=== PATIENT | female | born 1970 | race Caucasian/White ===

== ENCOUNTER 2017-02-15 19:43 | Emergency (ER) | payer MEDICAID ==
[2017-02-15 19:51] VITALS: O2SAT 100
[2017-02-15] MEDS ORDERED: Albuterol-Ipratrop 3 mg / 0.5 (3 ml) UD INH STA ×4 (20:10→21:20)
[2017-02-15] MEDS ORDERED: Albuterol-Ipratrop 3 mg / 0.5 (3 ml) UD ONE ×4 (20:20→21:53)
[2017-02-15] MEDS ORDERED: Albuterol 0.083% Inhal Sol (2.5 mg/3 mL) UD IH STA (21:40)
--- NOTE | 2017-02-15 21:45 | C.PDOC ---
History Of Present Illness 46 year old female presents to the ED with complaints of productive cough with green sputum, wheezing x approx 1 week - sent to ED by Dr. Covarrubias for evaluation. Patient states she was given antibiotics (Augmentin) by her PMD and completed the treatment, but has not had significant improvement. She also states she typically takes 5 mg daily (for RA) but has not had a steroid increase during these symptoms. She admits to history of asthma, denies intubation history but has had multiple admissions in the past. Patient also c/ o pleuritic back/chest pain. She denies fever, palpitations, abdominal pain. Time Seen by Provider: 02/15/17 20:05 Chief Complaint (Nursing): Shortness Of Breath History Per: Patient History/Exam Limitations: no limitations Onset/Duration Of Symptoms: Days (one week) Current Symptoms Are (Timing): Still Present Current Respiratory Medications: See Home Med List Severity: Moderate Past Medical History Reviewed: Historical Data, Nursing Documentation, Vital Signs Vital Signs: Last Vital Signs Temp 98.6 F 02/15/17 22:47 Pulse 120 H 02/15/17 22:47 Resp 20 02/15/17 22:47 BP 130/65 02/15/17 22:47 Pulse Ox 100 02/15/17 22:39 - Medical History PMH: Arthritis, Asthma, Rheumatoid Arthritis Surgical History: Cholecystectomy (15+ years ago) - [facility] Procedures DRAINAGE OF BLADDER WITH DRAINAGE DEVICE, VIA OPENING (11/09/16) Family History: States: No Known Family Hx - Social History Hx Tobacco Use: No Hx Alcohol Use: No Hx Substance Use: No - Immunization History Hx Tetanus Toxoid Vaccination: No Hx Influenza Vaccination: No Hx Pneumococcal Vaccination: No Review Of Systems Except As Marked, All Systems Reviewed And Found Negative. Constitutional: Negative for: Fever, Chills Cardiovascular: Negative for: Chest Pain, Palpitations Respiratory: Positive for: Cough (productive with green sputum ). Negative for : Shortness of Breath Gastrointestinal: Negative for: Nausea, Vomiting, Abdominal Pain, Diarrhea Genitourinary: Negative for: Dysuria, Hematuria, Vaginal Discharge, Vaginal Bleeding Skin: Negative for: Rash Physical Exam - Physical Exam Appears: Well, Non-toxic, No Acute Distress, Other (coughing occasionally, speaking in full sentences) Skin: Warm, Dry Head: Normacephalic Eye(s): bilateral: Normal Inspection Oral Mucosa: Moist Throat: Normal, No Erythema, No Exudate, No Drooling Neck: Normal, Normal ROM, Supple Cardiovascular: Rhythm Regular, Other (tachycardic) Respiratory: No Accessory Muscle Use, No Rales, No Rhonchi, No Stridor, Wheezing (bilateral expiratory wheezing ) Gastrointestinal/Abdominal: Normal Exam, Bowel Sounds, Soft, No Tenderness Extremity: Normal ROM, No Tenderness, No Pedal Edema, No Calf Tenderness Pulses: Left Dorsalis Pedis: Normal, Right Dorsalis Pedis: Normal Neurological/Psych: Oriented x3 ED Course And Treatment O2 Sat by Pulse Oximetry: 100 (room air ) Pulse Ox Interpretation: Normal - Radiology CXR: Interpreted by Me, Viewed By Me (questionable right sided infiltrate, no effusions) Progress Note: Patient given PO Prednisone, multiple duoneb/albuterol neb treatments. CXR ordered and reviewed. Reevaluation Time: 22:45 Reassessment Condition: Improved (Patient reassessed, is resting comfortably and states she is feeling much better. On exam, she has good air entry without wheezing or accessory muscle use. Pox is 100% on RA, and peak flow has improved to300 (done by me). Patient oprefers to be discharged home at this time with PO meds. She was given Rxs for prednisone, albuterol inhaler, tessalon and avelox. Patient instructed to follow up with PMD in 1-2 days, and she understands she should return to ED immeidately if symptoms worsen.) Critical Care Time - Critical Care Note Total Time (in mins): 35 Documented critical care: time excludes all time spent performing seperately billable procedures. Disposition Counseled Patient/Family Regarding: Studies Performed, Diagnosis, Need For Followup, Rx Given - Disposition Referrals: Shaik Covarrubias MD [Staff Provider] - Disposition: HOME/ ROUTINE Disposition Time: 22:45 Condition: STABLE Additional Instructions: FOLLOW UP WITH YOUR DOCTOR IN 1-2 DAYS USE MEDICATIONS DIRECTED RETURN TO ER IF SYMPTOMS WORSEN Prescriptions: Albuterol 0.5% [Albuterol 0.5% Inhal Viviana (2.5 mg/0.5 ml) UD] 2.5 mg IH Q6 PRN # 1 bottle PRN Reason: Wheezing Benzonatate [Tessalon Perles] 100 mg PO BID PRN #20 sgl PRN Reason: Cough Moxifloxacin [Avelox] 400 mg PO DAILY #7 tab predniSONE [predniSONE Tab] 40 mg PO DAILY #8 tab Instructions: Asthma (ED), Pneumonia (ED) Print Language: TURKISH - POA Present On Arrival: None - Clinical Impression Clinical Impression: Pneumonia, Asthma exacerbation - Scribe Statement The provider has reviewed the documentation as recorded by the Scribe Kelly Weldon All medical record entries made by the Ingeibfrancoise were at my direction and personally dictated by me. I have reviewed the chart and agree that the record accurately reflects my personal performance of the history, physical exam, medical decision making, and the department course for this patient. I have also personally directed, reviewed, and agree with the discharge instructions and disposition.
[2017-02-15] MEDS ORDERED: Albuterol 0.083% Inhal Sol (2.5 mg/3 mL) UD ONE (21:53)
[2017-02-15 22:48] VITALS: BP 130/65; PULSE 120; RESP 20; TEMP 98.6
--- NOTE | 2017-02-16 13:27 | RAD ---
HISTORY: Cough, shortness of breath. [place] COMPARISON: No prior. TECHNIQUE: Chest PA and lateral FINDINGS: LUNGS: No active pulmonary disease. PLEURA: No significant pleural effusion identified. No pneumothorax apparent. CARDIOVASCULAR: Normal. OSSEOUS STRUCTURES: No significant abnormalities. VISUALIZED UPPER ABDOMEN: Normal. OTHER FINDINGS: None. IMPRESSION: No active disease.
== END 2017-02-15 22:49 | disposition home or self-care (01) ==
LOC: C.ER 19:43
DX: J18.9 Pneumonia, unspecified organism (principal); J45.901 Unspecified asthma with (acute) exacerbation